=== PATIENT | male | born 1965 | race Caucasian/White ===

== ENCOUNTER 2017-11-17 11:35 | Emergency (ER) | payer OTHER ==
[2017-11-17] MEDS ORDERED: Morphine 4 MG/ML VIAL ONE (12:29)
[2017-11-17] MEDS ORDERED: Ondansetron HCl/PF 4 MG/2 ML Vial ONE (12:29)
[2017-11-17 12:43] LABS: #Basophils 0.1 thou/uL (0.0-0.2); #Eosinphils 0.2 thou/uL (0.0-0.7); #Lymphocytes 1.2 thou/uL (1.20-3.40); #Monocytes 0.7 thou/uL (0.11-0.59); #Neutrophils 6.7 thou/uL (1.40-6.50); %Basophils 0.8 % (0.0-1.0); %Eosinophils 2.7 % (0.0-10.0); %Lymphocytes 13.3 % (21.0-51.0); %Monocytes 8.2 % (0.0-10.0); %Neutrophils 75.1 % (42.0-75.0); Hemoglobin 13.4 g/dL (14.0-18.0); Mean Corpuscular HGB CONC 32.6 g/dL (32.0-36.0); Mean Corpuscular Hemoglobin 29.2 pg (27.0-31.0); Mean Corpuscular Volume 89.5 fL (78.0-98.0); Mean Platelet Volume 7.3 fL (7.4-10.4); Platelet Count 330 thou/uL (130-400); Red Blood Cell (RBC) Count 4.61 mill/uL (4.70-6.10); White Blood Cell (WBC) Count 8.9 thou/uL (4.8-10.8)
[2017-11-17 12:46] LABS: INR-International Normal Ratio 1.1
[2017-11-17 12:47] LABS: PTT 31.8 SEC (22.9-36.1)
[2017-11-17 12:59] LABS: ALT (SGPT) 25 U/L (8-55); AST (SGOT) 16 U/L (5-34); Albumin 3.7 g/dL (3.5-5.0); Alkaline Phosphatase 87 U/L (40-150); Anion Gap 11 mmol/L (10-20); BUN (Urea Nitrogen) 15 mg/dL (8.4-25.7); Bilirubin, Total 0.2 mg/dL (0.2-1.2); Calc. Creatinine Clearance 0 mL/min (70-130); Calcium 9.4 mg/dL (7.8-10.44); Carbon Dioxide 26 mmol/L (22-29); Chloride 103 mmol/L (98-107); Estimated GFR-MDRD 68; Globulin 3.3 g/dL (2.4-3.5); Glucose 129 mg/dL (70-105); Potassium 4.1 mmol/L (3.5-5.1); Sodium 136 mmol/L (136-145)
== END 2017-11-17 14:04 | disposition home or self-care (01) ==
LOC: ERS 11:35
DX: I26.99 Other pulmonary embolism without acute cor pulmonale (principal); G62.9 Polyneuropathy, unspecified; F17.210 Nicotine dependence, cigarettes, uncomplicated; Z79.899 Other long term (current) drug therapy
CPT/HCPCS: 36415; 80053; 85025; 85610; 85730; 93005; 96374; 96375; J2270; J2405

== ENCOUNTER 2018-02-14 13:11 | Emergency (ER) | payer OTHER ==
--- NOTE | 2018-02-14 14:23 | RAD ---
LEFT ANKLE RADIOGRAPHS THREE VIEWS: 02/14/2018 PROVIDED CLINICAL HISTORY: Left ankle swelling, status post injury. FINDINGS: There is no evidence for fracture or other acute osseous abnormality. If there is persistent clinical concern, conservative management and follow-up imaging are advised. IMPRESSION: As above. POS: SOL
== END 2018-02-14 14:16 | disposition home or self-care (01) ==
LOC: SCSER 13:11
DX: M25.572 Pain in left ankle and joints of left foot (principal); I10 Essential (primary) hypertension; G62.9 Polyneuropathy, unspecified; F17.210 Nicotine dependence, cigarettes, uncomplicated; W18.40XA Slipping, tripping and stumbling without falling, unspecified, initial encounter

== ENCOUNTER 2018-10-22 00:27 | Observation (INO) | payer OTHER ==
[2018-10-22 00:56] LABS: #Basophils 0.1 thou/uL (0.0-0.2); #Eosinphils 0.3 thou/uL (0.0-0.7); #Lymphocytes 1.9 thou/uL (1.20-3.40); #Monocytes 1.1 thou/uL (0.11-0.59); #Neutrophils 9.6 thou/uL (1.40-6.50); %Basophils 0.6 % (0.0-1.0); %Eosinophils 2.7 % (0.0-10.0); %Lymphocytes 14.4 % (21.0-51.0); %Monocytes 8.4 % (0.0-10.0); %Neutrophils 73.9 % (42.0-75.0); Mean Corpuscular HGB CONC 33.2 g/dL (32.0-36.0); Mean Corpuscular Hemoglobin 27.5 pg (27.0-31.0); Mean Corpuscular Volume 82.8 fL (78.0-98.0); Mean Platelet Volume 7.9 fL (7.4-10.4); Platelet Count 226 thou/uL (130-400); RBC Distribution Width 12.4 % (11.5-14.5); Red Blood Cell (RBC) Count 5.46 mill/uL (4.70-6.10)
[2018-10-22 01:04] LABS: PTT 29.6 SEC (22.9-36.1); Prothrombin Time 13.2 SEC (12.0-14.7)
[2018-10-22 01:19] LABS: ALT (SGPT) 53 U/L (8-55); AST (SGOT) 35 U/L (5-34); Albumin 4.2 g/dL (3.5-5.0); Alkaline Phosphatase 75 U/L (40-150); Anion Gap 15 mmol/L (10-20); BUN (Urea Nitrogen) 13 mg/dL (8.4-25.7); Bilirubin, Total 0.3 mg/dL (0.2-1.2); Calc. Creatinine Clearance 0 mL/min (70-130); Calcium 9.4 mg/dL (7.8-10.44); Carbon Dioxide 25 mmol/L (22-29); Chloride 102 mmol/L (98-107); Estimated GFR-MDRD 68; Globulin 2.7 g/dL (2.4-3.5); Glucose 82 mg/dL (70-105); Potassium 4.4 mmol/L (3.5-5.1); Protein, Total 6.9 g/dL (6.0-8.3); Sodium 138 mmol/L (136-145)
[2018-10-22] MEDS ORDERED: Metoclopramide HCl 10 MG/2 ML VIAL ONE (02:07)
[2018-10-22] MEDS ORDERED: diphenhydrAMINE 50 MG/ML VIAL ONE (02:07)
[2018-10-22] MEDS ORDERED: Acetaminophen 500 MG TAB ONE (02:07)
[2018-10-22] MEDS ORDERED: Aspirin Chewable 81 MG TAB ONE (02:07)
--- NOTE | 2018-10-22 05:53 | RAD ---
CHEST ONE VIEW: INDICATIONS: Generalized weakness. COMPARISON: 10/17/2018 FINDINGS: The lungs are clear. Heart size is normal. No acute osseous abnormality is evident. No acute cardi opulmonary abnormality. Deformity involving the right posterolateral 5th and 7th rib fractures. IMPRESSION: 1. No acute cardiopulmonary abnormality. 2. Stable right posterolateral rib deformity. POS: BH
--- NOTE | 2018-10-22 07:33 | CT ---
PRELIMINARY REPORT/[facility]/EMERGENCY AFTER HOURS PROCEDURE: EXAM: CT Head Without Contrast EXAM DATE/TIME: 10/22/2018 1:09 AM CLINICAL HISTORY: 53 years old, male; Headache; Patient HX: Er 3. 53 y/o m C/O sudden onset of bue weakness, MORRELL, dyspne a, and sensation of R sided neck swelling and pain that began at approx 1700. HX of CVA TECHNIQUE: Imaging protocol: Computed tomography images of the head without contrast. COMPARISON: No relevant prior studies available. FINDINGS: Brain: Mild chronic white matter disease. No midline shift, mass, fluid collection, or evidence of hemorrhage. Ventricles: Normal. No ventriculomegaly. Bones/joints: Unremarkable. No acute fracture. Sinuses: Visualized sinuses are unremarkable. No fluid levels. Mastoid air cells: Visualized mastoid air cells are well aerated. No mastoid effusion. Soft tissues: Unremarkable. IMPRESSION: No acute intracranial abnormality. Thank you for allowing us to participate in the care of your patient. Dictated and Authenticated by: Tim Poon MD 10/22/2018 1:41 AM Central Time ([place] & [place]) FINAL REPORT HEAD CT WITHOUT CONTRAST: COMPARISON: 10/05/2013. HISTORY: Sudden onset bilateral upper extremity weakness. Headache. FINDINGS: No parenchymal hemorrhage or extraaxial hematoma. Brain volume is age appropriate. No hydrocephalus . Cortical flores-white matter differentiation is preserved. Adequate aeration of the sinuses and mas toid air cells. The calvarium is intact. IMPRESSION: No acute intracranial process. POS: OFF
--- NOTE | 2018-10-22 08:14 | CT ---
PRELIMINARY REPORT/[facility]/EMERGENCY AFTER HOURS PROCEDURE: EXAM: CT Angiography Head Without And With Contrast EXAM DATE/TIME: 10/22/2018 1:11 AM CLINICAL HISTORY: 53 years old, male; Headache; Patient HX: Er 3. 53 y/o m C/O sudden onset of bue weakness, MORRELL, dyspne a, and sensation of R sided neck swelling and pain that began at approx 1700. HX of CVA TECHNIQUE: Imaging protocol: Computed tomographic angiography images of the head without and with intravenous co ntrast using CT angiography protocol. 3D rendering: MIP reconstructed images were created and reviewed. COMPARISON: No relevant prior studies available. FINDINGS: Right internal carotid artery: Mild cavernous and supraclinoid right internal carotid artery atherosc lerotic plaque and stenosis. Right anterior cerebral artery: Unremarkable. No occlusion or significant stenosis. No aneurysm. Right middle cerebral artery: Unremarkable. No occlusion or significant stenosis. No aneurysm. Right posterior cerebral artery: Unremarkable. No occlusion or significant stenosis. No aneurysm. Right vertebral artery: Unremarkable. No occlusion or significant stenosis. No aneurysm. Left internal carotid artery: Mild cavernous and supraclinoid left internal carotid artery atheroscle rotic plaque and stenosis. Left anterior cerebral artery: Unremarkable. No occlusion or significant stenosis. No aneurysm. Left middle cerebral artery: Unremarkable. No occlusion or significant stenosis. No aneurysm. Left posterior cerebral artery: Unremarkable. No occlusion or significant stenosis. No aneurysm. Left vertebral artery: Unremarkable. No occlusion or significant stenosis. No aneurysm. Basilar artery: Unremarkable. No occlusion or significant stenosis. No aneurysm. Dural sinuses/cerebral veins: The visualized deep and superficial dural venous sinuses and cortical v eins are patent. HEAD: Brain: Unremarkable. No hemorrhage. No significant white matter disease. No edema. Ventricles: Normal. No ventriculomegaly. Bones/joints: Unremarkable. No acute fracture. Sinuses: Visualized sinuses are normal. No fluid levels. Mastoid air cells: Visualized mastoids are normal. No mastoid effusion. Soft tissues: Unremarkable. IMPRESSION: No acute abnormality. EXAM: CT Angiography Neck With Contrast EXAM DATE/TIME: 10/22/2018 1:11 AM CLINICAL HISTORY: 53 years old, male; Headache; Patient HX: Er 3. 53 y/o m C/O sudden onset of bue weakness, MORRELL, dyspne a, and sensation of R sided neck swelling and pain that began at approx 1700. HX of CVA TECHNIQUE: Imaging protocol: Computed tomographic angiography images of the neck with intravenous contrast using CT angiography protocol. 3D rendering: MIP reconstructed images were created and reviewed. COMPARISON: No relevant prior studies available. FINDINGS: VASCULATURE: Right common carotid artery: Mild atherosclerotic plaque in the predominately distal right common carotid artery and the bifurcation. Right internal carotid artery: Mild atherosclerotic plaque in the carotid bulb and proximal right internal carotid artery with less than 50% stenosis by NASCET criteria. Right external carotid artery: Unremarkable. No occlusion or stenosis of the origin. Right vertebral artery: Unremarkable. No stenosis. No dissection or occlusion. Left common carotid artery: Mild atherosclerotic plaque in the predominately distal left common carotid artery and the bifurcation. Left internal carotid artery: Mild atherosclerotic plaque in the proximal left internal carotid arter y and carotid bulb with less than 50% stenosis by NASCET criteria. Left external carotid artery: Unremarkable. No occlusion or stenosis of the origin. Left vertebral artery: Unremarkable. No stenosis. No dissection or occlusion. NECK: Bones/joints: Moderate cervical spondylosis with disc bulges and protrusions, greatest at C3-C4, C5-C 6, and C6-C7. Soft tissues: Normal. No significant soft tissue swelling. IMPRESSION: No acute abnormality. COMMENT: Reference per NASCET criteria for degree of stenosis: Mild: less than 50% stenosis. Moderate: 50-69% stenosis. Severe: 70-94% stenosis. Near occlusion: 95-99% stenosis. Thank you for allowing us to participate in the care of your patient. Dictated and Authenticated by: Tim Poon MD 10/22/2018 1:56 AM Central Time ([place] & [place]) FINAL REPORT: CT ANGIOGRAM OF THE HEAD CT ANGIOGRAM OF THE NECK: HISTORY: Sudden bilateral lower extremity weakness. COMPARISON: None. TECHNIQUE: CT angiogram of the head and neck was performed in the axial plane. Three-dimension reformatted imag es are submitted for interpretation. FINDINGS: POSTCONTRAST HEAD CT: No pathologic enhancement of the brain parenchyma. Visualized soft tissue neck structures are unremarkable. Symmetric attenuation of the sternocleidoma stoid muscles. Unremarkable thyroid gland and salivary glands. There are varying degrees of central canal stenosis and foraminal narrowing on the bases of degenerative change. Limited evaluation by shawn guajardo. Upper mediastinum and lung apices are unremarkable. CT ANGIOGRAM: Visualized aortic arch has appropriate enhancement and luminal diameter. RIGHT CAROTID: No significant stenosis based upon NASCET criteria. LEFT CAROTID: No significant stenosis based upon NASCET criteria. There is a small linear filling defect noted in the left carotid bifurcation which may represent a small web or possible ulceration. Better interrog ation with conventional angiography may be beneficial. Cervicovertebral arteries are patent throughout their course in the neck. Bilateral subclavian arter ies are patent. CT ANGIOGRAM OF THE HEAD: Intracranial internal carotid arteries have appropriate enhancement and luminal diameter. ANTERIOR CIRCULATION: Significant enhancement and luminal diameter of the A1 and M1 segments. Proximal A2 segments and pro ximal MCA branches are unremarkable. POSTERIOR CIRCULATION: Bilateral PICA artery origins are unremarkable. Both vertebral arteries supply a normal-appearing basilar artery. Bilateral P1 segments have appropr iate enhancement and luminal diameter. IMPRESSION: 1. This report is in agreement with the preliminary report by [facility]. No significant stenosis at t he level of the [place]. No significant stenosis of the cervical carotid or vertebral arter ies based upon NASCET criteria. 2. There is a small linear filling defect noted in the left carotid bifurcation which may repres ent a small web or possible ulceration. Better interrogation with conventional angiography may be be neficial. CODE T POS: OFF
[2018-10-22] MEDS ORDERED: ISOVUE-370 76%-LOCM 1 ML ONE (09:33)
[2018-10-22] MEDS ORDERED: Senokot S 8.6-50 MG TAB PO PRN (10:07)
[2018-10-22] MEDS ORDERED: Acetaminophen 650 MG Suppository PR PRN (10:07)
[2018-10-22] MEDS ORDERED: Ondansetron ODT 4 MG TAB PO PRN (10:07)
[2018-10-22] MEDS ORDERED: Ondansetron PF 4 MG/2 ML Vial IVP PRN (10:07)
[2018-10-22] MEDS ORDERED: PROVENTIL INHALER 6.7 G (200 INHALATIONS) INH PRN (10:09)
[2018-10-22] MEDS ORDERED: predniSONE 20 MG TAB PO SCH (10:15)
[2018-10-22] MEDS ORDERED: DULoxetine 60 MG CAP PO SCH (10:15)
[2018-10-22] MEDS ORDERED: Apixaban 5 MG TAB PO SCH (10:15)
[2018-10-22] MEDS ORDERED: Folic Acid 1 MG TAB PO SCH (10:15)
[2018-10-22] MEDS ORDERED: Gabapentin 300 MG CAP PO SCH (10:15)
[2018-10-22] MEDS ORDERED: Acetaminophen 325 MG TAB ONE (10:43)
[2018-10-22] MEDS: Acetaminophen 325 MG TAB PO PRN ×2 (10:45→17:56)
--- NOTE | 2018-10-22 11:13 | MRI ---
MRI BRAIN WITHOUT CONTRAST: HISTORY: Right-sided neck pain and weakness, headache CORRELATION: CT scan from 10/22/2018. FINDINGS: No restricted diffusion is seen. The ventricular size is appropriate and the basilar cisterns are pat ent. No evidence of acute infarct, hemorrhage, midline shift or abnormal extra-axial fluid collections is seen. There is fluid in the mastoid air cells. The visualized paranasal sinuses are we ll-aerated. IMPRESSION: No evidence of acute intracranial process.
--- NOTE | 2018-10-22 11:17 | PDOC.HHP ---
Hospitalist HPI - History of Present Illness Right arm pain/weakness/numbness History of Present Illness: Mr. Dutton is an inmate who presents after experiencing sudden right shoulder pain radiating to the right neck yesterday at approximately 5pm. States he was sitting up and denies any trauma or injuries. He described pain in the right anterior and posterior shoulder with burning pain going down his right arm. He has weakness in the right hand with reduced sensation in the entire right arm. Reports tenderness to a "vessel" over the right bicep which radiates to the right neck. The pain is a 7/10 in severity but worsens on palpation. He was recently discharged on 10/19/2018 after found to have a PE (hx of saddle PE diagnosed 8 months ago), patient discharged on Eliquis 10 mg BID x 6 days, and states he missed his dose last night and this morning. Has not missed any doses otherwise. Denies any family history of clotting disorder. Reports a history of migraines and currently has an 8/10 generalized headache which he usually treats with Tramadol. ED Course: In the ED he was given Reglan, Benadryl, Tylenol ES and Aspirin [address] Brain showed no intracranial abnormalities. CTA head/neck also unremarkable, except possible filling defect at bifurcation of left ICA. CXR unremarkable. Vitals initially notable for BP 158/101, when last checked his BP was 160/96 at 02:00. He has been referred for CVA rule out. Hospitalist ROS - Review of Systems Constitutional: reports: fever (reports feeling feverish but no documented fever.), malaise Eyes: denies: pain, vision change, conjunctivae inflammation, eyelid inflammation, redness, other ENT: denies: ear pain, ear discharge, nose pain, nose discharge, nose congestion , mouth pain, mouth swelling, throat pain, throat swelling, other Respiratory: reports: cough (chronic cough, nonproductive), shortness of breath (since recent discharge). denies: dry, hemoptysis, SOB with excertion, sputum, wheezing, other Cardiovascular: reports: chest pain (since recent discharge, described as pressure across his chest, worse with inspiration). denies: palpitations, orthopnea, paroxysmal noc. dyspnea, edema, light headedness Gastrointestinal: reports: diarrhea (one episode of loose stools yesterday). denies: nausea, vomitting, abdominal pain, constipation, melena, hematochezia Genitourinary: denies: dysuria, frequency, incontinence, hematuria, retention, other Musculoskeletal: reports: neck pain, shoulder pain (right shoulder), arm pain ( right arm) Skin: denies: rash, lesions, tyson, bruising, other Neurological: reports: weakness (right hand), numbness (right upper extremity). denies: incoordination, change in speech, confusion, seizures, other Hospitalist History - Past Medical History Source: patient Cardiac: reports: no pertinent history Pulmonary: reports: CVA/TIA/stroke, hypertension, pulmonary embolism, Other ( History of heavy tobacco use) LABORATORY ASSOCIATE: reports: Peripheral neuropathy Rheumatologic: reports: Rheumatoid arthritis, Vasculitis, Other (Natacha's Granulomatosis) - Past Surgical History Past Surgical History: reports: Other (Neck surgery and left femur surgery) - Family History Family History: reports: cardiac disorder (Father) - Social History Smoking Status: Former smoker Drugs: reports: Other (previous prescription drug abuse) Living Situation: Other (Incarcerated at [facility]) Activity level: independent ambulation - Exam General Appearance: NAD, awake alert Eye: PERRL, anicteric sclera ENT: normocephalic atraumatic, no oropharyngeal lesions Neck: supple (tenderness to palpation of neck, full ROM, no nuchal rigidity), no lymphadenopathy Heart: RRR Respiratory: CTAB, no wheezes, no rales, no ronchi, normal chest expansion, no tachypnea Gastrointestinal: soft, non-tender, non-distended, normal bowel sounds, no palpable masses Extremities: no cyanosis, no edema Extremeties - other findings: Tender palpable cord over right upper bicep Skin: normal turgor, no lesions, no rashes Neurological - other findings: Weakness to right hand/arm, reduced sensation to right arm Musculoskeletal - other findings: diffuse tenderness to palpation of right anterior/posterior shoulder & back Psychiatric: normal affect, normal behavior, A&O x 3 Hospitalist Results - Labs Result Diagrams: 10/23/18 05:11 10/23/18 05:11 Lab results: WBC 13.0 thou/uL (4.8-10.8) H 10/22/18 00:50 Hgb 15.0 g/dL (14.0-18.0) 10/22/18 00:50 Hct 45.2 % (42.0-52.0) 10/22/18 00:50 MCV 82.8 fL (78.0-98.0) 10/22/18 00:50 Plt Count 226 thou/uL (130-400) 10/22/18 00:50 Neutrophils % 73.9 % (42.0-75.0) 10/22/18 00:50 Sodium 138 mmol/L (136-145) 10/22/18 00:37 Potassium 4.4 mmol/L (3.5-5.1) 10/22/18 00:37 Chloride 102 mmol/L (98-107) 10/22/18 00:37 Carbon Dioxide 25 mmol/L (22-29) 10/22/18 00:37 BUN 13 mg/dL (8.4-25.7) 10/22/18 00:37 Creatinine 1.12 mg/dL (0.7-1.3) 10/22/18 00:37 Glucose 82 mg/dL (70-105) 10/22/18 00:37 Calcium 9.4 mg/dL (7.8-10.44) 10/22/18 00:37 Total Bilirubin 0.3 mg/dL (0.2-1.2) 10/22/18 00:37 AST 35 U/L (5-34) H 10/22/18 00:37 ALT 53 U/L (8-55) 10/22/18 00:37 Alkaline Phosphatase 75 U/L (40-150) 10/22/18 00:37 Troponin I Less than 0.010 ng/mL (< 0.028) 10/22/18 00:36 Serum Total Protein 6.9 g/dL (6.0-8.3) 10/22/18 00:37 Albumin 4.2 g/dL (3.5-5.0) 10/22/18 00:37 - EKG Interpretation EKG: Sinus bradycardia, HR 55 Hospitalist H&P A/P - Problem (1) Weakness of right upper extremity Code(s): R29.898 - [facility] [place] SYMPTOMS AND SIGNS INVOLVING THE MUSCULOSKELETAL SYSTEM Status: Acute Assessment and Plan: Continue CVA work-up. MRI Brain ordered. Given degree of associated which seems radicular, will obtain MRI Rt shoulder. Will try Flexeril for pain. (2) Headache Code(s): R51 - HEADACHE Status: Acute Assessment and Plan: History of migraines usually treated with Tramadol. Will give Tramadol 50 mg PO x 1. (3) Hypertension Code(s): I10 - ESSENTIAL (PRIMARY) HYPERTENSION Status: Chronic Qualifiers: Hypertension type: essential hypertension Qualified Code(s): I10 - Essential (primary) hypertension Assessment and Plan: Resume home meds and monitor BP. (4) Pulmonary embolism Code(s): I26.99 - OTHER PULMONARY EMBOLISM WITHOUT ACUTE COR PULMONALE Status : Acute Qualifiers: Pulmonary embolism type: saddle Chronicity: chronic Assessment and Plan: Resume Eliquis 10 mg BID (reduce to 5 mg BID starting 10/26/2018). Given hx of DVT will obtain doppler of RUE, given palpable vessel. (5) CKD (chronic kidney disease) stage 2, GFR 60-89 ml/min Code(s): N18.2 - CHRONIC KIDNEY DISEASE, STAGE 2 (MILD) Status: Chronic Assessment and Plan: S/p CTA, will give gentle hydration. Monitor renal function. (6) Chronic pain Code(s): G89.29 - OTHER CHRONIC PAIN Status: Chronic Qualifiers: Chronic pain type: chronic pain syndrome Qualified Code(s): G89.4 - Chronic pain syndrome Assessment and Plan: Resume home medications including Gabapentin. (7) H/O vasculitis Code(s): Z86.79 - PERSONAL HISTORY OF OTHER DISEASES OF THE CIRCULATORY SYSTEM Status: Chronic Assessment and Plan: Resume home dose of prednisone. - Plan Plan: FULL CODE STATUS. Disposition: Stroke/Obs. Patients case discussed with Dr. Brasher who agrees with plan as above. Addendum by Tim Brasher MD: Chart reviewed, pt seen by me. Discussed case with Ms. Jane. Agree with plan of care as documented.
--- NOTE | 2018-10-22 11:30 | ULT ---
RIGHT UPPER EXTREMITY VENOUS DUPLEX EXAM: HISTORY: Right upper extremity pain and swelling. FINDINGS: Real-time color Doppler evaluation of the right upper extremity was performed to include the internal jugular, subclavian, axillary, brachial, basilic, an cephalic veins. This shows evidence of both de ep vein and superficial thrombus. There is nonocclusive thrombus seen within the right subclavian ve in. The axillary vein does not show any definitive flow and portions of the cephalic vein showed no flow. IMPRESSION: Evidence of deep vein thrombosis of the right upper extremity. POS: TPC
--- NOTE | 2018-10-22 11:56 | MRI ---
MRI CERVICAL SPINE WITHOUT CONTRAST: INDICATION: Neck pain. FINDINGS: Cervical vertebrae maintain height. There is loss of disk space at C5-6 with degenerative spurring a t this level. Slight posterior listhesis at this level. The other disk spaces are maintained. The vertebral body signal is normal. No edema. Degenerative end plate changes are present at C5-6. At C2-3, mild posterior spondylosis effaces the anterior subarachnoid space. At C3-4, mild posterior disk bulge and spondylosis efface the anterior subarachnoid space. No signif icant cord impingement. At C4-5, posterior disk bulge and spondylosis efface the anterior subarachnoid space without signific ant cord impingement. Foramina appear patent. At C5-6, disk bulge and spondylitic change impinge on and mildly flatten the anterior cord. Left for aminal stenosis due to facet and uncinate hypertrophy. At C6-7, disk bulge and spondylosis abut the anterior cord. Cord signal appears normally maintained. IMPRESSION: Posterior disk bulge and spondylitic changes are most pronounced at C5-6 and C6-7 as described above. POS: SOL
[2018-10-22] MEDS ORDERED: Cyclobenzaprine 10 MG TAB PO SCH (12:00)
[2018-10-22] MEDS ORDERED: traMADol HCl 50 MG TAB PO SCH (12:00)
[2018-10-22] MEDS ORDERED: traMADol HCl 50 MG TAB ONE (12:06)
[2018-10-22] MEDS ORDERED: predniSONE 20 MG TAB ONE (12:07)
[2018-10-22] MEDS ORDERED: Folic Acid 1 MG TAB ONE (12:07)
[2018-10-22] MEDS ORDERED: Cyclobenzaprine 10 MG TAB ONE (12:07)
--- NOTE | 2018-10-22 12:45 | MRI ---
MRI OF RIGHT SHOULDER PERFORMED WITHOUT CONTRAST ENHANCEMENT: HISTORY: Right shoulder pain and weakness in arm. FINDINGS: There is marked arthrosis of the AC joint. The supra- as well as infraspinatus tendons are intact. Some minimal tendinosis changes of the supra spinatus tendon. Subscapularis tendon also shows some mild tendinosis change. There may be a small interstitial tear as the biceps tendon appears to be somewhat subluxed into the substance of the superior fibers of the subscapularis tendon. There is tendinosis of the intraarticular portion of the biceps tendon with a chronic-appearing superior labral tear present. In addition, there is irregularity to the anterior inferior labrum and some osteophytic lipping to the glenoid. There is evidence of some articular car tilage loss in the humeral head. IMPRESSION: 1. Marked arthrosis of the acromioclavicular joint. 2. No evidence for a tear of either the supraspinatus or infraspinatus tendons. 3. Tendinosis of the subscapularis tendon. There may be a small interstitial tear as the biceps ten don appears to be slightly subluxed into the substance of the tendon and there is moderate tendinosis of the intraarticular portion of the biceps tendon. 4. Irregular appearance to the superior labrum at the biceps anchor level. This has an appearance m ore of a chronic tear. In addition, the anterior inferior labrum appears diminutive and there is ost eophytic change along the anterior margin of the glenoid. POS: TPC
[2018-10-22 16:58] VITALS: BMI 24.7
[2018-10-22] MEDS: Cyclobenzaprine 10 MG TAB PO PRN (22:01)
[2018-10-22] MEDS: Atorvastatin Calcium 40 MG TAB PO SCH (22:02)
[2018-10-22] MEDS: Apixaban 5 MG TAB PO SCH (22:02)
[2018-10-22] MEDS: Gabapentin 300 MG CAP PO SCH (22:02)
[2018-10-22] MEDS: Famotidine/PF 20 mg/2ml Vial SLOW IVP SCH (22:02)
[2018-10-23 05:29] LABS: #Eosinphils 0.2 thou/uL (0.0-0.7); #Lymphocytes 2.2 thou/uL (1.20-3.40); #Monocytes 0.8 thou/uL (0.11-0.59); #Neutrophils 4.4 thou/uL (1.40-6.50); %Basophils 0.6 % (0.0-1.0); %Eosinophils 3.1 % (0.0-10.0); %Lymphocytes 28.3 % (21.0-51.0); %Monocytes 10.3 % (0.0-10.0); %Neutrophils 57.7 % (42.0-75.0); Hemoglobin 13.6 g/dL (14.0-18.0); Mean Corpuscular Hemoglobin 27.8 pg (27.0-31.0); Mean Corpuscular Volume 84.3 fL (78.0-98.0); Mean Platelet Volume 7.8 fL (7.4-10.4); Platelet Count 235 thou/uL (130-400); RBC Distribution Width 12.3 % (11.5-14.5); Red Blood Cell (RBC) Count 4.88 mill/uL (4.70-6.10); White Blood Cell (WBC) Count 7.7 thou/uL (4.8-10.8)
[2018-10-23 05:50] LABS: Anion Gap 10 mmol/L (10-20); BUN (Urea Nitrogen) 15 mg/dL (8.4-25.7); Calc. Creatinine Clearance 92 mL/min (70-130); Carbon Dioxide 26 mmol/L (22-29); Cardiac Risk 3.3 (Less than 4.5); Chloride 104 mmol/L (98-107); Cholesterol 188 mg/dl (< 200 Desired); Estimated GFR-MDRD 74; Glucose 74 mg/dL (70-105); HDL Cholesterol 57 mg/dL (>60 Neg Risk); LDL Cholesterol, Calculated 113 mg/dL; Potassium 3.8 mmol/L (3.5-5.1); Sodium 136 mmol/L (136-145); Triglycerides 89 mg/dL (Less than 150)
[2018-10-23] MEDS ORDERED: predniSONE 5 MG TAB PO SCH (08:00)
[2018-10-23] MEDS: Apixaban 5 MG TAB PO SCH ×2 (08:57→20:08)
[2018-10-23] MEDS: Gabapentin 300 MG CAP PO SCH ×2 (08:58→20:09)
[2018-10-23] MEDS: Famotidine/PF 20 mg/2ml Vial SLOW IVP SCH (08:59)
[2018-10-23] MEDS ORDERED: Thiamine 100 MG TAB PO SCH (09:00)
[2018-10-23] MEDS ORDERED: Multivit, Therapeutic 1 TAB PO SCH (09:00)
[2018-10-23] MEDS ORDERED: Folic Acid 1 MG TAB PO SCH (09:00)
[2018-10-23] MEDS ORDERED: DULoxetine 60 MG CAP PO SCH (09:00)
[2018-10-23] MEDS ORDERED: Aspirin 81 mg Enteric Coated Tablet PO SCH (09:00)
[2018-10-23] MEDS: Cyclobenzaprine 10 MG TAB PO PRN ×2 (09:17→17:51)
[2018-10-23] MEDS: Acetaminophen 325 MG TAB PO PRN (09:17)
--- NOTE | 2018-10-23 15:10 | PDOC.HOSPP ---
- Subjective Encounter Date: 10/23/18 Encounter Time: 07:00 Subjective: Pt seen for followup re; right shoulder pain. No fevers or chills. - Objective Vital Signs & Weight: Vital Signs (12 hours) Temp Pulse Pulse Pulse Resp BP BP 10/23/18 12:00 97.4 F L 54 L 16 10/23/18 11:05 66 62 127/91 H 131/96 H 10/23/18 08:00 98.2 F 50 L 12 10/23/18 04:00 97.7 F 54 L 16 BP Pulse Ox 10/23/18 12:00 153/103 H 94 L 10/23/18 11:05 10/23/18 08:00 141/79 H 94 L 10/23/18 04:00 151/93 H 96 Weight Weight 177 lb 8 oz I&O: 10/22/18 10/23/18 10/24/18 06:59 06:59 06:59 Intake Total 480 600 Balance 480 600 Result Diagrams: 10/23/18 05:11 10/23/18 05:11 Additional Labs: Labs and MARs reviewed by wi Hospitalist ROS - Review of Systems Cardiovascular: denies: chest pain, palpitations, orthopnea, paroxysmal noc. dyspnea, edema, light headedness Musculoskeletal: reports: shoulder pain. denies: neck pain, arm pain, back pain , hand pain, leg pain, foot pain - Medication Medications: Active Medications Generic Name Dose Route Start Last Admin Trade Name Freq PRN Reason Stop Dose Admin Acetaminophen 650 mg 10/22/18 10:07 10/23/18 09:17 Tylenol PO 650 mg Q4H PRN Administration Headache/Fever/Mild Pain (1-3) Apixaban 10 mg 10/22/18 21:00 10/23/18 08:57 Eliquis PO 10/27/18 21:01 10 mg BID NORMA Administration Aspirin 81 mg 10/23/18 09:00 10/23/18 08:56 Ecotrin PO 81 mg DAILY NORMA Administration Atorvastatin Calcium 40 mg 10/22/18 21:00 10/22/18 22:02 Lipitor PO 40 mg HS NORMA Administration Cyclobenzaprine HCl 10 mg 10/22/18 11:54 10/23/18 09:17 Flexeril PO 10 mg TID PRN Administration Muscle Spasm Duloxetine HCl 120 mg 10/23/18 09:00 10/23/18 08:57 Cymbalta PO 120 mg DAILY NORMA Administration Famotidine 20 mg 10/22/18 21:00 10/23/18 08:59 Pepcid SLOW IVP 20 mg Q12HR NORMA Administration Folic Acid 1 mg 10/23/18 09:00 10/23/18 08:58 Folvite PO 1 mg DAILY NORMA Administration Gabapentin 300 mg 10/22/18 21:00 10/23/18 08:58 Neurontin PO 300 mg BID NORMA Administration Multivitamins 1 tab 10/23/18 09:00 10/23/18 08:58 Theragran PO 1 tab DAILY NOMRA Administration Prednisone 10 mg 10/23/18 08:00 10/23/18 08:57 Prednisone PO 10 mg QAM-WM NORMA Administration Thiamine HCl 100 mg 10/23/18 09:00 10/23/18 08:58 Thiamine PO 100 mg DAILY NORMA Administration - Exam General Appearance: NAD Eye: anicteric sclera ENT: moist mucosa Neck: supple Heart: RRR Respiratory: CTAB Gastrointestinal: soft, non-tender Musculoskeletal - other findings: right shoulder tenderness, decreased ROM Psychiatric: normal affect, normal behavior Hosp A/P (1) Right shoulder pain Code(s): M25.511 - PAIN IN RIGHT SHOULDER Status: Acute (2) DVT (deep venous thrombosis) Code(s): I82.409 - ACUTE EMBOLISM AND THOMBOS UNSP DEEP VN UNSP LOWER EXTREMITY Status: Acute (3) Pulmonary embolism Code(s): I26.99 - OTHER PULMONARY EMBOLISM WITHOUT ACUTE COR PULMONALE Status : Acute (4) Hypertension Code(s): I10 - ESSENTIAL (PRIMARY) HYPERTENSION Status: Chronic Qualifiers: Hypertension type: essential hypertension Qualified Code(s): I10 - Essential (primary) hypertension (5) CKD (chronic kidney disease) stage 2, GFR 60-89 ml/min Code(s): N18.2 - CHRONIC KIDNEY DISEASE, STAGE 2 (MILD) Status: Chronic (6) Dyslipidemia Code(s): E78.5 - HYPERLIPIDEMIA, UNSPECIFIED Status: Chronic - Plan PT/OT Pt seen by orthopedic surgery, PT recommended. Continue apixaban for DVT/PE. Continue Lipitor. Monitor vital signs, titrate antihypertensives as needed.
--- NOTE | 2018-10-23 15:18 | CON ---
DATE OF CONSULTATION: This is Abhijit Sunshine PA-C dictating a report for Arturo Ribera MD. HISTORY OF PRESENT ILLNESS: We were asked by the hospitalist to see the patient. The patient was admitted for workup for CVA versus TIA, also was having some right shoulder pain. This pain has a tendency to radiate up into his neck. He was concerned that he has had some blood clots in the past, that may be a vessel is irritated or he has a vasculitis. He has some tenderness in the axilla, in the bicipital tendon groove area, and then a little bit posteriorly. The patient in bed is able to raise his arm, move it about quite a bit. He winces some, but overall his movements are full. He is able to wiggle his fingers. He says he has some numbness and tingling in the digits occasionally, but this morning he is doing okay. The patient is currently incarcerated and he states hopefully for not too much longer. PAST MEDICAL HISTORY: Positive for hypertension and PE. Supposedly, he has some peripheral neuropathies, rheumatoid arthritis, vasculitis. PAST SURGICAL HISTORY: Neck surgery, left femoral surgery. FAMILY HISTORY: For this visit is noncontributory. ALLERGIES: NO KNOWN DRUG ALLERGIES. HOME MEDICATIONS: 1. Chlordiazepoxide. 2. Clonidine. 3. Prednisone. 4. Lyrica. 5. Thiamine. 6. Albuterol sulfate. 7. Eliquis. 8. Cymbalta. 9. Folic acid. 10. Multivitamin. REVIEW OF SYSTEMS: Currently denies any chest pain or shortness of breath. Mostly, the right shoulder pain and some pain into the neck, this currently is intermittent and with certain movements. Rest of review of systems is negative. PHYSICAL EXAMINATION: GENERAL: Well-nourished male, resting in hospital bed in room 213, in no acute distress. Speech clear. Affect pleasant. Answers questions appropriately. Alert and oriented x3. HEENT: Face symmetric. Tongue midline. NECK: Supple. Trachea midline. EXTREMITIES: Upper extremities; equal size, shape, symmetry, normal bulk and tone. He is able to raise both arms without much difficulty, but on that right upper extremity, he winces a little bit. He has a lot of point tenderness over the mid axilla area up into the bicipital tendon groove and posteriorly. Passive range of motion, the patient winces a little bit, but is able to tolerate full range of motion. Active range of motion, he is able to lift his arm. He is able to hold his strength. He winces a little bit, but I could not find any laxity in his strength or any give way that would make me concerned about a large tear. His coordinator of health services strengths this morning were equal and he has good sensations to his hands. ASSESSMENT: 1. The patient is in the hospital for rule out cerebrovascular accident versus transient ischemic attack. 2. Some right shoulder pain. I had a long talk with the patient. The plan would be currently get him started with some maybe PT/OT on that upper extremity, some strengthening around the shoulder girdle. He will need some pain control. Leave ibuprofen if reasonable per medical team. He may need some further outpatient strengthening of that shoulder also, which he understands. I think at this point, due to the acuity and lack of physical therapy, we would try this first. I am going to have him follow up with our outpatient clinic or shoulder specialist, may be Dr. Lewis, for further workup. He may need some injections in the future versus some long-term therapy. The patient is happy with the plan. Job ID: [id number]
[2018-10-23] MEDS ORDERED: Ibuprofen 200 MG TAB PO PRN (15:48)
[2018-10-23 18:14] VITALS: BP 138/96; TEMP 98.4
[2018-10-23] MEDS: Atorvastatin Calcium 40 MG TAB PO SCH (20:09)
--- NOTE | 2018-10-24 14:40 | DIS ---
DATE OF ADMISSION: 10/22/2018 DATE OF DISCHARGE: 10/23/2018 PRIMARY CARE PROVIDER: Unknown. DISCHARGE DIAGNOSES: 1. Deep vein thrombosis. 2. Right shoulder pain. CONDITION OF PATIENT ON THE DAY OF DISCHARGE: Stable. I assessed Mr. Dutton on the day of discharge. Please refer to my daily progress note for further details regarding this [id number] encounter. FOLLOWUP APPOINTMENTS: The patient is advised to follow up with primary care provider in 1 to 3 days. He is also advised to follow up with Dr. Ribera from Orthopedic Surgery in 2 to 3 weeks. DISCHARGE MEDICATIONS: He has been started on ibuprofen 200 mg every 6 hours as needed. His apixaban dose should be 10 mg 2 times a day until October 27, 2018, followed by 5 mg 2 times a day starting October 28, 2018. Otherwise, no change was made to his pre-admission home medications during this hospitalization. CONSULTATIONS DURING THIS HOSPITALIZATION: Orthopedic Surgery, Dr. Ribera. HOSPITAL COURSE: Mr. Dutton is a pleasant 53-year-old gentleman, who was admitted to [facility] from [facility] for right shoulder pain. MRI of the brain did not show any acute intracranial process. MRI of the right shoulder showed marked arthrosis of the acromioclavicular joint, tendinosis of the subscapularis tendon, possible small interstitial tear of the biceps tendon appeared to be slightly subluxed into the substance of the tendon, moderate tendinosis of the intra-articular portion of the biceps tendon and irregular appearance to the superior labrum at the biceps anchor level. He was treated with pain medications. He was seen by [facility] Surgery [facility]. They will follow up with him as outpatient. He was also seen by [facility]. He has been discharged from [facility]. [facility] is being [facility] in a stable condition. On the day of discharge, he has white count 7700, hemoglobin 13.6, platelet count 235,000. Normal Chem-7. Triglycerides 89, cholesterol 188, LDL cholesterol 113, and HDL cholesterol 57. Many thanks for allowing me to participate in your patient's care. Please feel free to contact me with any questions or concerns. DISCHARGE DESTINATION: [facility]. Job ID: [id number]
[2019-10-29] MEDS ORDERED: Apixaban 5 MG TAB PO SCH (09:00)
== END 2018-10-23 20:20 ==
LOC: ERS 00:27 → EEVIPCON 00:27 → ERHOLD 03:10 → 2SE 15:24
PROVIDERS: ADMIT Internal Medicine; ATTEND Internal Medicine
DX: M25.511 Pain in right shoulder (principal); M75.81 Other shoulder lesions, right shoulder; M25.811 Other specified joint disorders, right shoulder; I82.B11 Acute embolism and thrombosis of right subclavian vein; M75.21 Bicipital tendinitis, right shoulder; G43.909 Migraine, unspecified, not intractable, without status migrainosus; G62.9 Polyneuropathy, unspecified; M06.9 Rheumatoid arthritis, unspecified; M31.30 Wegener's granulomatosis without renal involvement; I12.9 Hypertensive chronic kidney disease with stage 1 through stage 4 chronic kidney disease, or unspecified chronic kidney disease; N18.2 Chronic kidney disease, stage 2 (mild); G89.4 Chronic pain syndrome; I26.99 Other pulmonary embolism without acute cor pulmonale; M50.222 Other cervical disc displacement at C5-C6 level; M47.812 Spondylosis without myelopathy or radiculopathy, cervical region; Z86.73 Personal history of transient ischemic attack (TIA), and cerebral infarction without residual deficits; Z87.891 Personal history of nicotine dependence; Z79.01 Long term (current) use of anticoagulants; Z79.52 Long term (current) use of systemic steroids; Z79.899 Other long term (current) drug therapy
CPT/HCPCS: 36415; 70450; 70496; 70498; 70551; 71045; 72141; 80048; 80053; 80061; 83605; 83880; 84145; 84484; 85025; 85610; 85652; 85730; 86140; 93005; 93306; 96365; 96366; 96375; G0378; J1200; J2765; J7512; Q9966; S0028

== ENCOUNTER 2018-11-24 11:45 | Outpatient (CLI) | payer OTHER ==
--- NOTE | 2018-11-24 12:13 | RAD ---
EXAM: Two views chest PROVIDED CLINICAL HISTORY: Dyspnea COMPARISON: 10/22/2018 FINDINGS: The cardiac silhouette does appear mildly enlarged. The pulmonary vasculature is within normal limits . The lungs are clear. Remote right-sided rib fractures are seen. There is a slight wedge-shaped deformity of the T11 vertebral body stable when compared to CTA chest on 10/17/2018. There has been no significant interval change compared to prior study. IMPRESSION: 1. No acute cardiopulmonary process. 2. Borderline cardiomegaly.
== END 2018-11-24 11:46 | disposition home or self-care (01) ==
LOC: RAD 11:45
PROVIDERS: ATTEND Internal Medicine Pulmonary Disease
DX: R06.00 Dyspnea, unspecified (principal); I51.7 Cardiomegaly
CPT/HCPCS: 71046

== ENCOUNTER 2021-12-31 12:17 | Inpatient (IN) | payer OTHER ==
[2021-12-31] MEDS ORDERED: Ondansetron PF 4 MG/2 ML Vial IVP PRN (12:59)
[2021-12-31 13:09] VITALS: BMI 24.4
[2021-12-31] MEDS ORDERED: Meropenem 1 GM in Sodium Chloride 0.9% 100 ML IVPB SCH (14:00)
[2021-12-31 14:05] LABS: Complement-C4 18.1 mg/dL (15-53)
[2021-12-31 14:17] LABS: INR-International Normal Ratio 3.7; PTT 81.1 sec (22.9-36.1); Prothrombin Time 38.1 sec (12.0-14.7)
[2021-12-31 14:27] LABS: HBCM Index 0.06 S/CO (0-0.79); HBSAg Index 0.28 S/CO (0-0.99); HIV (1/2) Antibody/Antigen Non-Reactive (NonReactive); HIV 1/2 INDEX 0.14 S/CO (<1.00); Hep A IgM AB Non-Reactive (NonReactive); Hep A IgM S/CO 0.14 S/CO (0-0.79); Hep B Surf Ag Non-Reactive S/CO (NonReactive); Hep C IgG Ab Non-Reactive (NonReactive); Hep C Index 0.11 S/CO (0-0.79); Hepatitis B Core IgM Abs Non-Reactive (NonReactive)
[2021-12-31] MEDS ORDERED: methylPREDNISolone Sod Succ 40 MG VIAL IVP SCH (17:00)
[2021-12-31] MEDS ORDERED: VANCOMYCIN 1.75 GM/500 ML BAG 1.75 GM in Premix Bag 1 BAG IVPB SCH (18:00)
[2021-12-31] MEDS: Meropenem 1 GM in Sodium Chloride 0.9% 100 ML IVPB SCH (23:13)
[2021-12-31] MEDS: Acetaminophen 325 MG TAB PO PRN (23:17)
[2022-01-01 02:26] LABS: Bacteria/HPF None Seen HPF (None Seen); Bilirubin Negative (Negative); Blood, Urine 3+ (Negative); Clarity Clear (Clear); Glucose, Urine (Dipstick) Normal (Negative); Ketone, Urine Negative (Negative); Leukocyte Negative Leu/uL (Negative); Nitrite Negative (Negative); Protein, Urine (Dipstick) 50 mg/dL (Neg-Trace); RBC/HPF Greater than 50 HPF (0-3); Specific Gravity, Urine 1.033 (1.002-1.036); Squamous Epithelial None Seen HPF (0-3); Urobilinogen Normal mg/dL (Less than 2)
[2022-01-01 02:28] LABS: Urine Culture Reflex Yes Yes
[2022-01-01 02:31] LABS: Amphetamine Not Detected (NotDetected); Barbiturates Screen Not Detected (NotDetected); Benzodiazepine Screen Not Detected (NotDetected); Cocaine Metabolite Screen Not Detected (NotDetected); Methadone Not Detected (NotDetected); Methamphetamine Not Detected (NotDetected); Opiate Screen Not Detected (NotDetected); Oxycodone Screen Not Detected (NotDetected); Phencyclidine (PCP) Not Detected (NotDetected); THC/Cannabinoid Screen Not Detected (NotDetected); Tricyclic Screen Not Detected (NotDetected)
[2022-01-01] MEDS: Meropenem 1 GM in Sodium Chloride 0.9% 100 ML IVPB SCH ×3 (05:12→22:26)
[2022-01-01] MEDS: Acetaminophen 325 MG TAB PO PRN ×2 (05:12→17:28)
[2022-01-01] MEDS ORDERED: Benzonatate 100 MG CAP PO SCH (05:15)
[2022-01-01] MEDS ORDERED: VANCOMYCIN 1.25 GM/250 ML BAG 1.25 GM in Premix Bag 1 BAG IVPB SCH (06:00)
[2022-01-01 06:59] LABS: Hemoglobin 8.5 g/dL (14.0-18.0); Mean Corpuscular HGB CONC 32.2 g/dL (32.0-36.0); Mean Corpuscular Hemoglobin 26.5 pg (27.0-31.0); Mean Corpuscular Volume 82.3 fl (78.0-98.0); Mean Platelet Volume 7.2 fL (7.4-10.4); Platelet Count 537 thou/uL (130-400); RBC Distribution Width 12.5 % (11.5-14.5); Red Blood Cell (RBC) Count 3.22 mill/uL (4.70-6.10); White Blood Cell (WBC) Count 13.6 thou/uL (4.8-10.8)
[2022-01-01 07:07] LABS: Anion Gap 11 mmol/L (10-20); BUN (Urea Nitrogen) 18 mg/dL (8.4-25.7); Calc. Creatinine Clearance 83 mL/min (70-130); Calcium 8.9 mg/dL (7.8-10.44); Carbon Dioxide 25 mmol/L (22-29); Chloride 108 mmol/L (98-107); Estimated GFR 76; Glucose 134 mg/dL (70-105); Potassium 3.9 mmol/L (3.5-5.1); Sodium 140 mmol/L (136-145)
[2022-01-01] MEDS: methylPREDNISolone Sod Succ 40 MG VIAL IVP SCH (08:25)
[2022-01-01] MEDS ORDERED: Iopamidol-370 76% 500 ML 1 ML ONE (08:46)
[2022-01-01] MEDS ORDERED: methylPREDNISolone Sod Succ/PF 125 MG/2 ML VIAL IVP SCH (09:00)
[2022-01-01] MEDS: VANCOMYCIN 1.25 GM/250 ML BAG 1.25 GM in Premix Bag 1 BAG IVPB SCH ×2 (09:14→20:15)
[2022-01-01 10:21] LABS: Band 2 % (5-11); Hypersemented Neutrophil SLIGHT; Lymphocytes 6 % (21-51); MDiff Complete? YES; Monocytes 4 % (0-10); Neutrophil 88 % (42-75); Platelet Morphology Comment Appears Increased; Polychromasia SLIGHT = 2-3 cells (100X) (0-2/hpf)
[2022-01-01] MEDS: hydrOXYzine Pamoate 25 mg Capsule PO PRN (14:05)
[2022-01-01] MEDS: Benzonatate 100 MG CAP PO PRN (17:28)
[2022-01-02] MEDS: Benzonatate 100 MG CAP PO PRN ×3 (04:37→20:40)
[2022-01-02] MEDS: Acetaminophen 325 MG TAB PO PRN ×4 (04:37→17:18)
[2022-01-02] MEDS: Meropenem 1 GM in Sodium Chloride 0.9% 100 ML IVPB SCH ×3 (05:03→20:33)
[2022-01-02] MEDS: DULoxetine 30 MG CAP PO SCH (08:03)
[2022-01-02] MEDS: methylPREDNISolone Sod Succ 40 MG VIAL IVP SCH (08:04)
[2022-01-02 08:56] LABS: Prothrombin Time 23.4 sec (12.0-14.7)
[2022-01-02 08:57] LABS: PTT 41.2 sec (22.9-36.1)
[2022-01-02] MEDS ORDERED: DULoxetine 60 MG CAP PO SCH ×2 (09:00)
[2022-01-02 09:28] LABS: ALT (SGPT) 131 U/L (8-55); AST (SGOT) 65 U/L (5-34); Alkaline Phosphatase 106 U/L (40-110); Anion Gap 11 mmol/L (10-20); BUN (Urea Nitrogen) 24 mg/dL (8.4-25.7); Bilirubin, Total 0.3 mg/dL (0.2-1.2); Calc. Creatinine Clearance 83 mL/min (70-130); Carbon Dioxide 25 mmol/L (22-29); Chloride 107 mmol/L (98-107); Estimated GFR 76; Globulin 3.6 g/dL (2.4-3.5); Glucose 98 mg/dL (70-105); Potassium 3.8 mmol/L (3.5-5.1); Protein, Total 6.6 g/dL (6.0-8.3); Sodium 139 mmol/L (136-145)
[2022-01-02 09:47] LABS: Vancomycin, Trough 17.6 ug/mL
[2022-01-02] MEDS: VANCOMYCIN 1.25 GM/250 ML BAG 1.25 GM in Premix Bag 1 BAG IVPB SCH ×2 (10:10→20:36)
[2022-01-02 10:44] LABS: Band 1 % (5-11); Eosinophils 1 % (0-10); Hypochromia SLIGHT = 6-15 cells (100X) (0-5/hpf); Lymphocytes 18 % (21-51); MDiff Complete? YES; Mean Corpuscular HGB CONC 31.2 g/dL (32.0-36.0); Mean Corpuscular Hemoglobin 25.7 pg (27.0-31.0); Mean Corpuscular Volume 82.4 fl (78.0-98.0); Monocytes 5 % (0-10); Myelocyte 1 % (0-0); Neutrophil 74 % (42-75); Platelet Count 664 thou/uL (130-400); Platelet Morphology Comment Appears Increased; Polychromasia SLIGHT = 2-3 cells (100X) (0-2/hpf); RBC Distribution Width 12.9 % (11.5-14.5); Red Blood Cell (RBC) Count 3.87 mill/uL (4.70-6.10); White Blood Cell (WBC) Count 23.1 thou/uL (4.8-10.8)
[2022-01-02 17:26] LABS: Creatinine, Urine 42.14 mg/dL (63-166); Microalbumin Urine 7.2 mg/dL (0.5-50.0); Microalbumin/Creat Ratio 170.9 mg/g (Less than 30)
[2022-01-02 18:00] LABS: Creatinine, Urine 41.91 mg/dL (63-166)
[2022-01-02] MEDS: Pregabalin 50 MG CAP PO SCH (20:38)
[2022-01-02] MEDS: hydrOXYzine Pamoate 25 mg Capsule PO PRN (20:40)
[2022-01-03] MEDS: Meropenem 1 GM in Sodium Chloride 0.9% 100 ML IVPB SCH ×3 (05:00→20:35)
[2022-01-03 07:14] LABS: INR-International Normal Ratio 1.6; Prothrombin Time 19.8 sec (12.0-14.7)
[2022-01-03 07:15] LABS: PTT 32.3 sec (22.9-36.1)
[2022-01-03] MEDS: methylPREDNISolone Sod Succ 40 MG VIAL IVP SCH (08:56)
[2022-01-03] MEDS: DULoxetine 30 MG CAP PO SCH (08:56)
[2022-01-03] MEDS: Pregabalin 50 MG CAP PO SCH ×3 (08:56→20:35)
[2022-01-03] MEDS: VANCOMYCIN 1.25 GM/250 ML BAG 1.25 GM in Premix Bag 1 BAG IVPB SCH ×2 (08:57→22:11)
[2022-01-03] MEDS: Benzonatate 100 MG CAP PO PRN ×2 (08:58→14:44)
[2022-01-03] MEDS: Acetaminophen 325 MG TAB PO PRN ×2 (09:01→14:49)
[2022-01-03] MEDS ORDERED: Folic Acid 1 MG TAB PO SCH (17:00)
[2022-01-03] MEDS ORDERED: METHOTREXATE SODIUM IM SCH (17:15)
[2022-01-03] MEDS ORDERED: PRE FILLED IM SCH (17:15)
[2022-01-03 21:01] LABS: Vancomycin, Trough 21.4 ug/mL
[2022-01-03] MEDS: Vancomycin 1 GM in Premix Bag 1 BAG IVPB SCH (22:46)
[2022-01-04] MEDS: Meropenem 1 GM in Sodium Chloride 0.9% 100 ML IVPB SCH ×3 (05:25→21:32)
[2022-01-04 06:46] LABS: INR-International Normal Ratio 1.3; PTT 30.7 sec (22.9-36.1); Prothrombin Time 16.4 sec (12.0-14.7)
[2022-01-04 07:03] LABS: Anion Gap 14 mmol/L (10-20); BUN (Urea Nitrogen) 24 mg/dL (8.4-25.7); Calc. Creatinine Clearance 86 mL/min (70-130); Calcium 8.3 mg/dL (7.8-10.44); Carbon Dioxide 25 mmol/L (22-29); Chloride 104 mmol/L (98-107); Estimated GFR 79; Glucose 83 mg/dL (70-105); Potassium 3.9 mmol/L (3.5-5.1); Sodium 139 mmol/L (136-145)
[2022-01-04] MEDS ORDERED: Warfarin Sodium 5 MG TAB PO SCH (09:00)
[2022-01-04] MEDS: Folic Acid 1 MG TAB PO SCH (09:14)
[2022-01-04] MEDS: methylPREDNISolone Sod Succ 40 MG VIAL IVP SCH (09:14)
[2022-01-04] MEDS: Pregabalin 50 MG CAP PO SCH ×3 (09:15→20:18)
[2022-01-04] MEDS: DULoxetine 30 MG CAP PO SCH (09:15)
[2022-01-04] MEDS: Benzonatate 100 MG CAP PO PRN (09:16)
[2022-01-04] MEDS: Apixaban 2.5 MG TAB PO SCH ×2 (09:16→20:19)
[2022-01-04] MEDS: Vancomycin 1 GM in Premix Bag 1 BAG IVPB SCH (09:18)
[2022-01-04 12:39] LABS: Myeloperoxidase AutoAbs <0.2 units (0.0-0.9); Perinuclear (P-ANCA) <1:20 titer (Neg:<1:20); Proteinase-3 AutoAbs Greater than 8.0 units (0.0-0.9)
[2022-01-04] MEDS: Acetaminophen 325 MG TAB PO PRN (12:46)
[2022-01-05 00:37] LABS: QuantiFERON-TB Gold Plus Indeterminate (Negative)
[2022-01-05] MEDS: Meropenem 1 GM in Sodium Chloride 0.9% 100 ML IVPB SCH (05:09)
[2022-01-05] MEDS: Acetaminophen 325 MG TAB PO PRN (05:09)
[2022-01-05 06:22] LABS: INR-International Normal Ratio 1.2; Prothrombin Time 15.3 sec (12.0-14.7)
[2022-01-05 06:23] LABS: PTT 29.3 sec (22.9-36.1)
[2022-01-05] MEDS: methylPREDNISolone Sod Succ 40 MG VIAL IVP SCH (08:02)
[2022-01-05] MEDS: Apixaban 2.5 MG TAB PO SCH (08:02)
[2022-01-05] MEDS: Pregabalin 50 MG CAP PO SCH (08:02)
[2022-01-05] MEDS: DULoxetine 30 MG CAP PO SCH (08:03)
[2022-01-05] MEDS: Folic Acid 1 MG TAB PO SCH (08:03)
[2022-01-05] MEDS ORDERED: Morphine 2 MG/ML VIAL SLOW IVP PRN (08:17)
[2022-01-05 08:25] VITALS: BP 153/80; TEMP 97.6
[2022-01-05] MEDS ORDERED: Sulfameth/Trimethoprim DS 800-160mg TAB PO SCH (09:00)
[2022-01-05] MEDS ORDERED: Morphine 4 MG/ML VIAL SLOW IVP PRN (09:00)
[2022-01-05 09:22] LABS: Vancomycin, Trough 13.2 ug/mL
[2022-01-07 15:52] LABS: ANA Symphony (Qualitative) Negative (Negative); ANA Symphony (Quantitative) 0.2 Ratio (< 0.7 Negative); dsDNA IgG Antibody 0.7 IU/mL (<10 Negative)
[2022-01-10] MEDS ORDERED: PRE FILLED IM SCH (09:00)
[2022-01-10] MEDS ORDERED: METHOTREXATE SODIUM IM SCH (09:00)
== END 2022-01-05 11:54 | disposition home or self-care (01) | DRG 872 ==
LOC: T4-B 12:17
PROVIDERS: ADMIT Internal Medicine; ATTEND Internal Medicine
DX: A41.9 Sepsis, unspecified organism (principal); M31.30 Wegener's granulomatosis without renal involvement; R04.2 Hemoptysis; N17.9 Acute kidney failure, unspecified; I77.82 Antineutrophilic cytoplasmic antibody [ANCA] vasculitis; Z20.822 Contact with and (suspected) exposure to COVID-19; F17.210 Nicotine dependence, cigarettes, uncomplicated; N18.2 Chronic kidney disease, stage 2 (mild); R91.1 Solitary pulmonary nodule; R06.03 Acute respiratory distress; Z86.711 Personal history of pulmonary embolism; Z79.01 Long term (current) use of anticoagulants; Z79.82 Long term (current) use of aspirin; Z79.51 Long term (current) use of inhaled steroids; Z79.899 Other long term (current) drug therapy
CPT/HCPCS: 36415; 76770; 80048; 80053; 80074; 80202; 80306; 81001; 82043; 82570; 83516; 84145; 84156; 85025; 85610; 85652; 85730; 86037; 86038; 86140; 86160; 86225; 86480; 86850; 86900; 86901; 87040; 87070; 87081; 87086; 87116; 87205; 87206; 87389; 87804; J2185; J2270; J2920; J3370; J3490; J9250; Q0177; Q9967

== ENCOUNTER 2022-08-26 01:02 | Observation (INO) | payer OTHER ==
[2022-08-27 02:06] VITALS: BMI 26.4
[2022-08-27] MEDS ORDERED: Acetaminophen 325 MG TAB PO PRN (02:42)
[2022-08-27] MEDS ORDERED: Albuterol 200 PUFF (6.7GM INHALER) INH PRN (03:26)
[2022-08-27 04:31] LABS: #Basophils 0.1 thou/uL (0.0-0.2); #Eosinphils 0.3 thou/uL (0.0-0.7); #Monocytes 0.8 thou/uL (0.11-0.59); #Neutrophils 3.5 thou/uL (1.40-6.50); %Basophils 0.7 % (0.0-1.0); %Eosinophils 3.6 % (0.0-10.0); %Lymphocytes 32.6 % (21.0-51.0); %Monocytes 10.8 % (0.0-10.0); %Neutrophils 50.1 % (42.0-75.0); Hemoglobin 10.9 g/dL (14.0-18.0); Mean Corpuscular HGB CONC 31.8 g/dL (32.0-36.0); Mean Corpuscular Hemoglobin 27.4 pg (27.0-31.0); Mean Corpuscular Volume 86.2 fl (78.0-98.0); Mean Platelet Volume 10.3 fL (7.4-10.4); Platelet Count 254 10x3/uL (130-400); RBC Distribution Width 15.5 % (11.5-14.5); Red Blood Cell (RBC) Count 3.98 mill/uL (4.70-6.10)
[2022-08-27] MEDS ORDERED: Lactated Ringer's 1,000 ML IV SCH (05:00)
[2022-08-27 05:09] LABS: Anion Gap 10 mmol/L (10-20); BUN (Urea Nitrogen) 27 mg/dL (8.4-25.7); Calc. Creatinine Clearance 60 mL/min (70-130); Carbon Dioxide 23 mmol/L (22-29); Chloride 110 mmol/L (98-107); Estimated GFR 47; Glucose 93 mg/dL (70-105); Potassium 4.4 mmol/L (3.5-5.1); Sodium 139 mmol/L (136-145)
[2022-08-27 05:47] LABS: Troponin I Less than 0.010 ng/mL (< 0.028)
[2022-08-27] MEDS: Apixaban 2.5 MG TAB PO SCH ×2 (08:11→21:17)
[2022-08-27] MEDS: DULoxetine 30 MG CAP PO SCH (08:12)
[2022-08-27] MEDS: Pregabalin 50 MG CAP PO SCH ×3 (08:12→21:16)
[2022-08-27] MEDS: Oxybutynin ER 5 MG TAB PO SCH (08:13)
[2022-08-27 08:53] LABS: Ferritin 59.13 ng/mL (22-322); Thyroid Stimulating Hormone 1.8708 uIU/mL (0.35-4.94)
[2022-08-27] MEDS ORDERED: Lisinopril 20 MG TAB PO SCH (09:00)
[2022-08-27] MEDS: predniSONE 5 MG TAB PO SCH (10:46)
[2022-08-27] MEDS: Folic Acid 1 MG TAB PO SCH (10:46)
[2022-08-27] MEDS: Ferrous Sulfate 325 MG TAB PO SCH (10:46)
[2022-08-27] MEDS ORDERED: Iron, Sodium Ferric Gluconate 250 MG in Sodium Chloride 0.9% 250 ML 250 ML IVPB SCH (15:30)
[2022-08-27 16:28] LABS: Amphetamine Not Detected (NotDetected); Barbiturates Screen Not Detected (NotDetected); Benzodiazepine Screen Not Detected (NotDetected); Cocaine Metabolite Screen Not Detected (NotDetected); Methadone Not Detected (NotDetected); Methamphetamine Not Detected (NotDetected); Opiate Screen Not Detected (NotDetected); Oxycodone Screen Not Detected (NotDetected); Phencyclidine (PCP) Not Detected (NotDetected); THC/Cannabinoid Screen Not Detected (NotDetected); Tricyclic Screen Not Detected (NotDetected)
[2022-08-27] MEDS ORDERED: Atorvastatin Calcium 40 MG TAB PO SCH (21:00)
[2022-08-28 04:15] LABS: #Basophils 0.1 thou/uL (0.0-0.2); #Eosinphils 0.3 thou/uL (0.0-0.7); #Monocytes 0.8 thou/uL (0.11-0.59); #Neutrophils 4.3 thou/uL (1.40-6.50); %Basophils 0.8 % (0.0-1.0); %Eosinophils 3.9 % (0.0-10.0); %Lymphocytes 25.8 % (21.0-51.0); %Monocytes 10.2 % (0.0-10.0); %Neutrophils 55.9 % (42.0-75.0); Hemoglobin 11.5 g/dL (14.0-18.0); Mean Corpuscular HGB CONC 31.5 g/dL (32.0-36.0); Mean Corpuscular Hemoglobin 27.9 pg (27.0-31.0); Mean Corpuscular Volume 88.6 fl (78.0-98.0); Platelet Count 275 10x3/uL (130-400); RBC Distribution Width 15.8 % (11.5-14.5); Red Blood Cell (RBC) Count 4.12 mill/uL (4.70-6.10); White Blood Cell (WBC) Count 7.7 10x3/uL (4.8-10.8)
[2022-08-28 04:38] LABS: Anion Gap 12 mmol/L (10-20); BUN (Urea Nitrogen) 21 mg/dL (8.4-25.7); Calc. Creatinine Clearance 74 mL/min (70-130); Carbon Dioxide 25 mmol/L (22-29); Chloride 110 mmol/L (98-107); Estimated GFR 60; Glucose 77 mg/dL (70-105); Potassium 4.1 mmol/L (3.5-5.1); Sodium 143 mmol/L (136-145)
[2022-08-28 07:35] VITALS: TEMP 97.7
[2022-08-28] MEDS: DULoxetine 30 MG CAP PO SCH (08:21)
[2022-08-28] MEDS: Apixaban 2.5 MG TAB PO SCH (08:21)
[2022-08-28] MEDS: Oxybutynin ER 5 MG TAB PO SCH (08:22)
[2022-08-28] MEDS: Pregabalin 50 MG CAP PO SCH ×2 (08:22→15:02)
[2022-08-28] MEDS ORDERED: Regadenoson 0.4 MG/5 ML SYRINGE ONE (10:15)
[2022-08-28 12:38] VITALS: BP 118/72
[2022-08-28] MEDS: Folic Acid 1 MG TAB PO SCH (13:13)
[2022-08-28] MEDS: predniSONE 5 MG TAB PO SCH (13:13)
[2022-08-28] MEDS: Ferrous Sulfate 325 MG TAB PO SCH (13:13)
== END 2022-08-28 16:59 | disposition home or self-care (01) ==
LOC: EDSTATUS 01:02 → 2NO 08-27 01:07 → INTOOBSV 08-27 01:07
PROVIDERS: ADMIT Student in an Organized Health Care Education/Training Program; ATTEND Student in an Organized Health Care Education/Training Program
DX: R55 Syncope and collapse (principal); R00.1 Bradycardia, unspecified; R51.9 Headache, unspecified; J96.01 Acute respiratory failure with hypoxia; I95.9 Hypotension, unspecified; N17.9 Acute kidney failure, unspecified; D50.9 Iron deficiency anemia, unspecified; I82.409 Acute embolism and thrombosis of unspecified deep veins of unspecified lower extremity; E78.5 Hyperlipidemia, unspecified; I10 Essential (primary) hypertension; I63.9 Cerebral infarction, unspecified; N32.81 Overactive bladder; F15.11 Other stimulant abuse, in remission; I69.952 Hemiplegia and hemiparesis following unspecified cerebrovascular disease affecting left dominant side; M31.30 Wegener's granulomatosis without renal involvement; I26.99 Other pulmonary embolism without acute cor pulmonale; Z79.01 Long term (current) use of anticoagulants; Z79.899 Other long term (current) drug therapy; F17.210 Nicotine dependence, cigarettes, uncomplicated
CPT/HCPCS: 36415; 70450; 71045; 78452; 80048; 80053; 80306; 82570; 82728; 83880; 83930; 83935; 84300; 84443; 84484; 85025; 93005; 93017; 93306; 96374; A9500; G0378; J1885; J2765; J2916; J7050; J7120; J7512